=== PATIENT | male | born 1945 | race African-American/Black ===

== ENCOUNTER 2017-07-06 07:19 | Emergency (ER) | payer MEDICARE ==
[2017-07-06 07:52] LABS: Hematocrit 50.6 % (42.0-52.0); Mean Platelet Volume 8.4 fL (7.4-10.4); Red Blood Cell (RBC) Count 5.45 mill/uL (4.70-6.10); White Blood Cell (WBC) Count 10.7 thou/uL (4.8-10.8)
[2017-07-06 08:07] LABS: Neutrophil 34 % (42-75); Reactive Lymphocytes 3 % (0-10)
[2017-07-06 08:18] LABS: ALT (SGPT) 26 U/L (8-55); AST (SGOT) 23 U/L (5-34); Alkaline Phosphatase 80 U/L (40-150); Anion Gap 15 mmol/L (10-20); BUN (Urea Nitrogen) 15 mg/dL (8.4-25.7); Bilirubin, Total 0.5 mg/dL (0.2-1.2); CK (CPK) 502 U/L (30-200); Calc. Creatinine Clearance 0 mL/min (70-130); Calcium 9.6 mg/dL (7.8-10.44); Carbon Dioxide 21 mmol/L (23-31); Chloride 104 mmol/L (98-107); Estimated GFR-MDRD 69; Globulin 3.6 g/dL (2.4-3.5); Protein, Total 7.8 g/dL (5.8-8.1)
[2017-07-06 08:21] LABS: Troponin I Less than 0.010 ng/mL (< 0.028)
--- NOTE | 2017-07-06 08:22 | RAD ---
PORTABLE CHEST: History: Cough. Comparison: 04-03-16 FINDINGS: There is a new rounded opacity in the peripheral right mid lung when compared to the prior portable e xam. This could represent focal infiltrate, however, underlying pulmonary mass cannot be excluded. Lungs otherwise appear clear and unchanged. Heart size upper normal and stable. Post op sternotomy ch anges again noted. IMPRESSION: New focal density in the peripheral right midlung field. Close follow up is recommended. If there are clinical signs of pneumonia, recommend follow up after medical treatment with PA and lateral views o f chest. If there are no clinical indications of pneumonia, recommend further evaluation with chest C T. POS: [facility]
== END 2017-07-06 08:25 | disposition home or self-care (01) ==
LOC: ERS 07:19
DX: J18.9 Pneumonia, unspecified organism (principal); E11.9 Type 2 diabetes mellitus without complications; I10 Essential (primary) hypertension; Z79.84 Long term (current) use of oral hypoglycemic drugs; Z79.82 Long term (current) use of aspirin; Z79.899 Other long term (current) drug therapy
CPT/HCPCS: 36415; 71010; 80053; 82553; 84484; 85025; 93005

== ENCOUNTER 2017-09-13 14:44 | Emergency (ER) | payer MEDICARE, OTHER ==
[~2017-09-13 14:44] MED LIST: ISOVUE-370 76%-LOCM 1 ML ONE
[2017-09-13 15:30] LABS: Hemoglobin 16.6 g/dL (14.0-18.0); Mean Corpuscular HGB CONC 33.5 g/dL (32.0-36.0); Mean Corpuscular Hemoglobin 30.1 pg (27.0-31.0); Mean Corpuscular Volume 89.6 fl (80.0-94.0); Platelet Count 216 thou/uL (130-400); RBC Distribution Width 12.3 % (11.5-14.5); Red Blood Cell (RBC) Count 5.52 mill/uL (4.70-6.10); White Blood Cell (WBC) Count 11.9 thou/uL (4.8-10.8)
[2017-09-13 15:47] LABS: Lymphocytes 34 % (21-51); MDiff Complete? YES; Monocytes 5 % (0-10); Neutrophil 28 % (42-75); PLT Morphology Comment Appears Adequate; RBC Morphology Normal; Reactive Lymphocytes 33 % (0-10)
--- NOTE | 2017-09-13 15:48 | RAD ---
PORTABLE AP CHEST X-RAY 09/13/17 HISTORY: Chest pain. COMPARISON: 07/06/17. FINDINGS: The previously described nodular opacity lateral aspect right mid lung zone is again seen although th e density does appear mildly diminished compared to the prior exam. Left lung is clear. The cardiac s ilhouette and pulmonary vasculature is within normal limits. Median sternotomy wires are again presen t. Vascular calcification seen in the thoracic aorta. No other interval change. IMPRESSION: Irregular increased density nodule lateral right mid lung zone which was more conspicuous on the prio r exam. However, this does persist and given that this does has not completely resolved, CT thorax ma y be helpful for further evaluation. POS: [facility]
[2017-09-13 15:52] LABS: ALT (SGPT) 24 U/L (8-55); AST (SGOT) 20 U/L (5-34); Albumin 4.6 g/dL (3.4-4.8); Alkaline Phosphatase 82 U/L (40-150); Anion Gap 14 mmol/L (10-20); BUN (Urea Nitrogen) 22 mg/dL (8.4-25.7); Bilirubin, Total 0.4 mg/dL (0.2-1.2); CK (CPK) 569 U/L (30-200); Calc. Creatinine Clearance 0 mL/min (70-130); Calcium 9.9 mg/dL (7.8-10.44); Carbon Dioxide 22 mmol/L (23-31); Chloride 105 mmol/L (98-107); Estimated GFR-MDRD 63; Globulin 3.5 g/dL (2.4-3.5); Glucose 122 mg/dL (80-115); Potassium 3.4 mmol/L (3.5-5.1); Protein, Total 8.1 g/dL (5.8-8.1); Sodium 138 mmol/L (136-145)
[2017-09-13 15:54] LABS: CKMB 3.3 ng/mL (0-6.6); Troponin I Less than 0.010 ng/mL (< 0.028)
--- NOTE | 2017-09-13 17:50 | CT ---
CT CHEST WITH CONTRAST 09/13/17 HISTORY: Right persistent lateral nodule. Pneumonia. COMPARISON: Chest radiograph same day. FINDINGS: There is moderate interstitial emphysema. There is a mass in the right upper lobe with peripheral spi culations. This measures 2.2 x 2.4 x 1.7 cm. There is a right middle lobe nodule which is small and measures up to approximately 5 mm. There is so me chronic pleural and parenchymal changes in both lung bases. No pneumothorax. There is no acute oss eous abnormality. There appears to be some hypertrophic scarring along the anterior thoracic wall. Mild hepatic steatos is. Incidental note is made of a splenule. Old right anterior third rib fracture. No acute fracture. No compression deformity of the thoracic sp ine. IMPRESSION: 1. The previously noted nodule in the right upper lobe is most suggestive of malignancy. This ma ss may be amenable to percutaneous biopsy depending on the level of inspiration, although given that it does abut the right minor fissure, it does carry an increased risk of pneumothorax with biopsy. Pu lmonology consultation is recommended. 2. Small satellite nodule within the right middle lobe measuring 5 mm. 3. Chronic pleural and parenchymal changes. 4. Moderate emphysema. Code T Code LN POS: [facility]
== END 2017-09-13 18:18 | disposition home or self-care (01) ==
LOC: ERS 14:44
DX: R91.8 Other nonspecific abnormal finding of lung field (principal); E11.9 Type 2 diabetes mellitus without complications; E78.5 Hyperlipidemia, unspecified; I10 Essential (primary) hypertension; K21.9 Gastro-esophageal reflux disease without esophagitis; Z79.82 Long term (current) use of aspirin; Z79.84 Long term (current) use of oral hypoglycemic drugs; Z79.899 Other long term (current) drug therapy
CPT/HCPCS: 36415; 71045; 71260; 80053; 82553; 84484; 85025; 93005

== ENCOUNTER 2018-11-12 01:27 | Emergency (ER) | payer MEDICARE, OTHER ==
[2018-11-12] MEDS ORDERED: Ondansetron PF 4 MG/2 ML Vial ONE (01:57)
[2018-11-12] MEDS ORDERED: Morphine 4 MG/ML VIAL ONE (01:57)
[2018-11-12 02:03] LABS: #Basophils 0.1 thou/uL (0.0-0.2); #Eosinphils 0.1 thou/uL (0.0-0.7); #Lymphocytes 5.7 thou/uL (1.20-3.40); #Monocytes 0.8 thou/uL (0.11-0.59); #Neutrophils 4.8 thou/uL (1.40-6.50); %Basophils 0.5 % (0.0-1.0); %Eosinophils 1.1 % (0.0-10.0); %Lymphocytes 49.7 % (21.0-51.0); %Neutrophils 41.8 % (42.0-75.0); Hemoglobin 16.1 g/dL (14.0-18.0); Mean Corpuscular Volume 91.1 fL (78.0-98.0); Mean Platelet Volume 9.6 fL (7.4-10.4); Platelet Count 199 thou/uL (130-400); RBC Distribution Width 12.6 % (11.5-14.5); Red Blood Cell (RBC) Count 5.35 mill/uL (4.70-6.10); White Blood Cell (WBC) Count 11.6 thou/uL (4.8-10.8)
[2018-11-12 02:25] LABS: ALT (SGPT) 25 U/L (8-55); AST (SGOT) 23 U/L (5-34); Albumin 4.6 g/dL (3.4-4.8); Alkaline Phosphatase 82 U/L (40-150); Anion Gap 13 mmol/L (10-20); BUN (Urea Nitrogen) 20 mg/dL (8.4-25.7); Bilirubin, Total 0.7 mg/dL (0.2-1.2); CK (CPK) 497 U/L (30-200); Calc. Creatinine Clearance 0 mL/min (70-130); Calcium 9.5 mg/dL (7.8-10.44); Carbon Dioxide 27 mmol/L (23-31); Chloride 104 mmol/L (98-107); Estimated GFR-MDRD 55; Glucose 165 mg/dL (83-110); Lipase 20 U/L (8-78); Potassium 3.5 mmol/L (3.5-5.1); Protein, Total 7.6 g/dL (5.8-8.1); Sodium 140 mmol/L (136-145)
[2018-11-12 02:56] LABS: Bilirubin Negative (Negative); Blood, Urine Negative (Negative); Clarity TURBID (Clear); Glucose, Urine (Dipstick) Negative (Negative); Leukocyte Negative (Negative); Nitrite Negative (Negative); Protein, Urine (Dipstick) Negative (Neg-Trace); Specific Gravity, Urine 1.011 (1.002-1.036); Urobilinogen 0.2 mg/dL (0.2-1.0)
--- NOTE | 2018-11-12 08:45 | CT ---
PRELIMINARY REPORT/VIRTUAL RADIOLOGIC CONSULT ANTS/EMERGENCY AFTER HOURS PROCEDURE: EXAM: CT Abdomen and Pelvis With Contrast EXAM DATE/TIME: 11/12/2018 2:45 AM CLINICAL HISTORY: 73 years old, male; Abdominal pain; Acute; Patient HX: 73 yo m presents for evaluation of abd pain/ba ck pain since yesterday. PT C/O associated constipation and trouble passing gas. Last bm was yesterda y, per PT. Denies nausea/vomiting/diarrhea TECHNIQUE: Imaging protocol: Axial computed tomography images of the abdomen and pelvis with intravenous contras t. Coronal reformatted images were created and reviewed. COMPARISON: No relevant prior studies available. FINDINGS: Lungs: Mild bibasilar atelectasis and scarring. 8mm noncalcified nodule within the posterior right lo wer lobe (series 2, image 21). ABDOMEN: Liver: Normal. Gallbladder and bile ducts: Normal. Pancreas: Normal. Spleen: Normal. Adrenals: Normal. Kidneys and ureters: Normal. Stomach and bowel: Few loops of nondilated, gas and fluid-filled small bowel, which is a nonspecific finding, but can be seen with enteritis. Moderate amount of stool through colon, suggesting constipat ion. No evidence of obstruction. Appendix: Appendix normal. PELVIS: Bladder: Unremarkable as visualized. Reproductive: Prostate gland is enlarged, measuring 4.6 in meters in AP diameter. ABDOMEN and PELVIS: Intraperitoneal space: Normal. No free air. No significant fluid collection. Bones/joints: No acute abnormality. Soft tissues: Normal. 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 No evidence of leakage or rupture. Lymph nodes: Normal. No enlarged lymph nodes. IMPRESSION: 1. Few loops of nondilated, gas and fluid-filled small bowel, which is a nonspecific finding, but can be seen with enteritis. 2. 8mm noncalcified nodule within the posterior right lower lobe (series 2, image 21). Recommend furt her evaluation. 3. 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 No evidence of leakage or rupture. 4. Moderate amount of stool through colon, suggesting constipation. No evidence of obstruction. Thank you for allowing us to participate in the care of your patient. Dictated and Authenticated by: Yahir Keller MD 11/12/2018 3:51 AM Central Time ([place] & [place]) FINAL REPORT CT ABDOMEN AND PELVIS WITH CONTRAST: Nonspecific, fluid-filled, mildly distended loops of small bowel noted, as described on preliminary r eport. This is nonspecific, as noted on the preliminary report. Aneurysm of the right common iliac artery is noted as described on the preliminary report. Question lung nodule in right lung base. I am in agreement with the preliminary report issued by [facility]. CODE LN POS: [facility]
--- NOTE | 2018-11-12 09:14 | RAD ---
PORTABLE CHEST: Date: 11/12/18 HISTORY: Nausea and vomiting. COMPARISON: 09/13/17 exam. FINDINGS: There is focal infiltrate or mass density in the right mid lung. Heart size upper normal. Postop sternotomy change. Mild interstitial prominence is stable. IMPRESSION: Enlarging density in the right mid lung. CODE T. POS: [facility]
[2018-11-12] MEDS ORDERED: ISOVUE-370 76%-LOCM 1 ML ONE (12:57)
== END 2018-11-12 05:10 | disposition home or self-care (01) ==
LOC: ERS 01:27
DX: K52.9 Noninfective gastroenteritis and colitis, unspecified (principal); K59.00 Constipation, unspecified; E11.9 Type 2 diabetes mellitus without complications; I10 Essential (primary) hypertension; E78.00 Pure hypercholesterolemia, unspecified; I25.2 Old myocardial infarction; Z79.899 Other long term (current) drug therapy; Z79.84 Long term (current) use of oral hypoglycemic drugs
CPT/HCPCS: 36415; 71045; 74177; 80053; 81003; 82550; 83690; 83880; 84484; 85025; 93005; 96361; 96374; 96375; J2270; J2405; Q9966

== ENCOUNTER 2023-09-18 08:22 | Emergency (ER) | payer MEDICARE, OTHER ==
[2023-09-18] MEDS ORDERED: NOREPINEPHRINE 8 MG/250 ML-D5W 250 ML ONE (08:39)
[2023-09-18 08:56] LABS: #Eosinphils 0.1 thou/uL (0.0-0.7); #Monocytes 0.8 thou/uL (0.11-0.59); #Neutrophils 5.2 thou/uL (1.40-6.50); %Basophils 0.2 % (0.0-1.0); %Eosinophils 0.9 % (0.0-10.0); %Lymphocytes 28.4 % (21.0-51.0); %Neutrophils 61.1 % (42.0-75.0); Hematocrit 37.2 % (42.0-52.0); Hemoglobin 11.3 g/dL (14.0-18.0); Mean Corpuscular HGB CONC 30.4 g/dL (32.0-36.0); Mean Corpuscular Hemoglobin 30.4 pg (27.0-31.0); Mean Platelet Volume 10.8 fL (7.4-10.4); Platelet Count 419 10x3/uL (130-400); Red Blood Cell (RBC) Count 3.72 mill/uL (4.70-6.10); White Blood Cell (WBC) Count 8.6 10x3/uL (4.8-10.8)
[2023-09-18 09:12] LABS: INR-International Normal Ratio 1.2; Prothrombin Time 14.8 sec (12.0-14.7)
[2023-09-18 09:22] LABS: ALT (SGPT) 25 U/L (8-55); AST (SGOT) 48 U/L (5-34); Albumin 2.8 g/dL (3.4-4.8); Alkaline Phosphatase 458 U/L (40-110); Anion Gap 21 mmol/L (10-20); BUN (Urea Nitrogen) 65 mg/dL (8.4-25.7); Bilirubin, Total 6.1 mg/dL (0.2-1.2); Calc. Creatinine Clearance 0 mL/min (70-130); Calcium 8.5 mg/dL (7.8-10.44); Carbon Dioxide 20 mmol/L (23-31); Chloride 102 mmol/L (98-107); Estimated GFR 15; Globulin 3.8 g/dL (2.4-3.5); Glucose 85 mg/dL (83-110); Lipase 11 U/L (8-78); Magnesium 3.4 mg/dL (1.6-2.6); Potassium 4.8 mmol/L (3.5-5.1); Protein, Total 6.6 g/dL (5.8-8.1); Sodium 138 mmol/L (136-145)
[2023-09-18 09:24] LABS: Troponin I Less than 0.010 ng/mL (< 0.028)
[2023-09-18] MEDS ORDERED: dilTIAZem 25 MG/5 ML VIAL ONE (09:44)
[2023-09-18 10:00] LABS: CK (CPK) 86 U/L (30-200)
[2023-09-18] MEDS ORDERED: Heparin 25,000 units/D5W 500 ML ONE (10:36)
[2023-09-18] MEDS ORDERED: Heparin 5,000 UNITS/ML VIAL ONE (11:10)
[2023-09-18] MEDS ORDERED: Heparin 10,000 UNITS/ 10 ML VIAL SLOW IVP SCH (11:45)
[2023-09-18 12:04] LABS: Lactic Acid 1.9 mmol/L (0.5-2.2)
[2023-09-18 12:17] LABS: Influenza A by NAA Not Detected (NotDetected); Influenza B by NAA Not Detected (NotDetected); SARS-CoV-2 NAA Rapid Test Not Detected (NotDetected)
== END 2023-09-18 12:28 | disposition short-term general hospital (02) ==
LOC: ERS 08:22
DX: I47.10 Supraventricular tachycardia, unspecified (principal); I26.99 Other pulmonary embolism without acute cor pulmonale; K76.7 Hepatorenal syndrome; R18.0 Malignant ascites; C78.00 Secondary malignant neoplasm of unspecified lung; E11.9 Type 2 diabetes mellitus without complications; I10 Essential (primary) hypertension; I25.2 Old myocardial infarction; E78.00 Pure hypercholesterolemia, unspecified; Z79.82 Long term (current) use of aspirin; Z79.899 Other long term (current) drug therapy
CPT/HCPCS: 36415; 71045; 71275; 74177; 80053; 82550; 83605; 83690; 83735; 83880; 84484; 85025; 85610; 85730; 87040; 87149; 93005; 96365; 96366; 96368; 96375; 96376; J1644